=== PATIENT | female | born 1960 | race Caucasian/White ===

== ENCOUNTER 2016-11-07 11:41 | Emergency (ER) | payer OTHER ==
[2016-11-07] MEDS ORDERED: VALIUM 10 MG/2 ML SYRINGE IV ONE (12:33)
--- NOTE | 2016-11-07 12:33 | ERPHSYRPT ---
- History of Present Illness Time Seen by Provider: 11/07/16 12:23 Source: patient, family Exam Limitations: no limitations Patient Subjective Stated Complaint: pt states her hands have been shaking for the past several days. pt also c/o a headache, feeling tired and bruising easily. Triage Nursing Assessment: pt pink, warm, dry. pt ambulated into er without difficultuy. pt able to cntrol movements on own. janusz wnl. Physician History: The patient is a 56-year-old female with family complaining of shaking in both hands that began at midnight or 12 hours ago. She went back to sleep for 3 hours and when she woke up at 3 AM to do a paper route her hands were still shaking. She is able to grasp objects with her hands. She is able to drive a car. Her legs not shake. Her head and neck do not shake. She has no pain. She has not taken any new prescription medications or [id number] medications in the past week. During the interview she is laughing. Her past medical history is significant for arthritis, hypertension, and GERD. Timing/Duration: today, hour(s) (12), constant, sudden Severity: moderate Modifying Factors: Improves With: nothing Associated Symptoms: denies symptoms Allergies/Adverse Reactions: erythromycin base [Erythromycin Base] Allergy (Severe, Verified 11/06/15 09:36) Difficulty Breathing difficulty breathing and chest pain cephalexin monohydrate [From Keflex] Allergy (Mild, Verified 11/07/16 11:58) yeast infection doxycycline Allergy (Mild, Verified 11/07/16 11:58) Nausea and Vomiting bad headache and nausea escitalopram oxalate [From Lexapro] Allergy (Mild, Verified 11/07/16 11:58) Headache Sulfa (Sulfonamide Antibiotics) Allergy (Mild, Verified 11/07/16 11:58) Hives aspirin [From Dominique-Durant] Allergy (Verified 11/07/16 11:58) citric acid [From Dominique-Durant] Allergy (Verified 11/07/16 11:58) prednisone Allergy (Verified 11/07/16 11:58) Headache sodium bicarbonate [From Dominique-Durant] Allergy (Verified 11/07/16 11:58) acetaminophen [From NyQuil] Adverse Reaction (Verified 11/07/16 11:58) dextromethorphan HBr [From NyQuil] Adverse Reaction (Verified 11/07/16 11:58) doxylamine succinate [From NyQuil] Adverse Reaction (Verified 11/06/15 09:36) pseudoephedrine HCl [From NyQuil] Adverse Reaction (Verified 11/06/15 09:36) Home Medications: Losartan Potassium [Cozaar] 50 mg PO DAILY 12/08/14 [History] Pantoprazole Sodium [Protonix] 40 mg PO BID 12/08/14 [History] Nitroglycerin 0.4 mg Tablet [Nitrostat 0.4 MG Tablet] 1 tab SL DAILY PRN 03/07/15 [History] Diclofenac Sodium Gel [Voltaren GEL] 0 gm TOP DAILY 11/07/16 [History] Meloxicam 7.5 mg [Mobic 7.5 MG] 7.5 mg PO DAILY 11/07/16 [History] Hx Tetanus, Diphtheria Vaccination/Date Given: Yes (up to date) Hx Influenza Vaccination/Date Given: No Hx Pneumococcal Vaccination/Date Given: No Immunizations Up to Date: Yes - Review of Systems Constitutional: No Fever, No Chills Eyes: No Symptoms Ears, Nose, & Throat: No Symptoms Respiratory: No Cough, No Dyspnea Cardiac: No Chest Pain, No Edema, No Syncope Abdominal/Gastrointestinal: No Abdominal Pain, No Nausea, No Vomiting, No Diarrhea Genitourinary Symptoms: No Dysuria Musculoskeletal: No Back Pain, No Neck Pain Skin: No Rash Neurological: Tremors (hands) Psychological: No Symptoms Endocrine: No Symptoms Hematologic/Lymphatic: No Symptoms Immunological/Allergic: No Symptoms All Other Systems: Reviewed and Negative - Past Medical History Pertinent Past Medical History: Yes Neurological History: Migraines ENT History: Other Cardiac History: Arrhythmia, Hypertension, Other Respiratory History: No Pertinent History Endocrine Medical History: No Pertinent History Musculoskeletal History: Arthritis, Degenerative Disk Disease, Rheumatoid Arthritis GI Medical History: GERD, Gallbladder Disease History: No Pertinent History Psycho-Social History: No Pertinent History Female Reproductive Disorders: No Pertinent History Other Medical History: 2 Bulging DISKS IN BACKDEGENERATIVE DISK DISEASE - Past Surgical History Past Surgical History: No Neuro Surgical History: No Pertinent History Cardiac: No Pertinent History Respiratory: No Pertinent History Gastrointestinal: Cholecystectomy Genitourinary: No Pertinent History Musculoskeletal: Orthopedic Surgery Female Surgical History: No Pertinent History Other Surgical History: rt foot fx,TONSILLECTOMYRIGHT ANKLE SURGERY - Social History Smoking Status: Never smoker Exposure to second hand smoke: Yes Drug Use: none Patient Lives Alone: No - Female History Hx Now: No - Nursing Vital Signs Nursing Vital Signs: Initial Vital Signs Temperature 97.8 F Temperature Source Oral Pulse Rate 72 Respiratory Rate 16 Blood Pressure [Right Arm] 146/80 Pain Intensity 0 - Physical Exam General Appearance: no apparent distress, alert Eye Exam: PERRL/EOMI, eyes nml inspection Ears, Nose, Throat Exam: normal ENT inspection, TMs normal, pharynx normal, moist mucous membranes Neck Exam: normal inspection, non-tender, supple, full range of motion Respiratory Exam: normal breath sounds, lungs clear, No respiratory distress Cardiovascular Exam: regular rate/rhythm, normal heart sounds, normal peripheral pulses Gastrointestinal/Abdomen Exam: soft, normal bowel sounds, No tenderness, No mass Pelvic Exam: not done Rectal Exam: not done Back Exam: normal inspection, normal range of motion, No CVA tenderness, No vertebral tenderness Extremity Exam: normal inspection, normal range of motion, pelvis stable Neurologic Exam: alert, oriented x 3, cooperative, dismantler II-XII nml as tested, normal mood/affect, sensation nml, other (There is a resting violent shaking of the patient's hands bilaterally. When distracted by doing a physical exam involving one hand, the other hand becomes completely still. For example, when doing the cerebellar tests of finger to nose with the right hand, the right hand which shake but successfully find the nose and finger but the left hand would become completely still. When the test was shifted to the finger-nose for the left hand, the right hand would become completely still. Other distractions would also cause the hands become still. The patient was able to grasp objects without difficulty with her hands. When asked to refrain from shaking, the patient could do so.) Skin Exam: normal color, warm, dry, No rash Lymphatic Exam: No adenopathy SpO2: 98 Oxygen Delivery: Room Air Ordered Tests: Active Orders 24 hr Category Date Time Status IV Insertion STAT Care 11/07/16 12:33 Active BMP Stat Lab 11/07/16 12:50 Completed CBC W DIFF Stat Lab 11/07/16 12:50 Completed UA W/ MICROSCOPIC Stat Lab 11/07/16 12:33 Completed Urine Triage Profile Stat Lab 11/07/16 12:34 Completed Medication Summary Discontinued Medications Generic Name Dose Route Start Last Admin Trade Name Hailey PRN Reason Stop Dose Admin Diazepam 10 mg 11/07/16 12:33 11/07/16 12:42 Valium 10 Mg/2 Ml Syringe IV 11/07/16 12:34 10 mg STAT ONE Administration Diazepam Confirm 11/07/16 12:41 Valium 10 Mg/2 Ml Syringe Administered 11/07/16 12:42 Dose 10 mg .ROUTE .STK-MED ONE Lab/Rad Data: Laboratory Result Diagrams 11/07/16 12:50 11/07/16 12:50 Laboratory Results 11/07/16 11/07/16 11/07/16 Range/Units 12:50 12:50 12:34 WBC 6.4 (4.0-10.5) K/mm3 RBC 4.43 (4.1-5.4) M/mm3 Hgb 12.6 (12.0-16.0) gm/dl Hct 39.6 (35-47) % MCV 89.4 (78-100) fl MCH 28.4 (26-32) pg MCHC 31.8 L (32-36) g/dl RDW 14.9 H (11.5-14.0) % Plt Count 275 (150-450) K/mm3 MPV 11.7 H (6-9.5) fl Gran % 71.2 H (36.0-66.0) % Lymphocytes % 20.5 L (24.0-44.0) % Monocytes % 6.7 (0.0-12.0) % Eosinophils % 1.1 (0.00-5.0) % Basophils % 0.5 (0.0-0.4) % Basophils # 0.03 (0-0.4) Sodium 143 (136-145) mEq/L Potassium 3.8 (3.5-5.1) mEq/L Chloride 106 (98-107) mEq/L Carbon Dioxide 27.9 (21-32) mEq/L Anion Gap 12.5 (5-15) MEQ/L BUN 16 (9-20) mg/dL Creatinine 1.19 (0.55-1.30) mg/dl Estimated GFR 50 ML/MIN Glucose 96 (70-110) MG/DL Calcium 8.9 (8.5-10.1) mg/dL Ur Collection Type Urine Color (YELLOW) Urine Appearance (CLEAR) Urine pH (5-6) Ur Specific [place] (1.005-1.025) Urine Protein (Negative) Urine Glucose (UA) (NEGATIVE) mg/dL Urine Ketones (NEGATIVE) Urine Nitrite (NEGATIVE) Urine Bilirubin (NEGATIVE) Urine Urobilinogen (0-1) mg/dL Urine WBC (Auto) (NEGATIVE) Urine RBC (Auto) (0-5) Matthew/ul Urine Microscopic RBC (0-2) /HPF Urine Microscopic WBC (0-5) /HPF Ur Epithelial Cells (FEW) /HPF Urine Bacteria (NEGATIVE) /HPF Urine Mucus (NEGATIVE) /HPF Urine Opiates Level NEG. (NEGATIVE) Ur Methadone NEG. (NEGATIVE) Urine Barbiturates NEG. (NEGATIVE) Ur Phencyclidine (PCP) NEG. (NEGATIVE) Urine Amphetamine NEG. (NEGATIVE) U Benzodiazepine Level NEG. (NEGATIVE) Urine Cocaine NEG. (NEGATIVE) Urine Marijuana (THC) NEG. (NEGATIVE) Specimen Received 11/07/16 Range/Units 12:33 WBC (4.0-10.5) K/mm3 RBC (4.1-5.4) M/mm3 Hgb (12.0-16.0) gm/dl Hct (35-47) % MCV (78-100) fl MCH (26-32) pg MCHC (32-36) g/dl RDW (11.5-14.0) % Plt Count (150-450) K/mm3 MPV (6-9.5) fl Gran % (36.0-66.0) % Lymphocytes % (24.0-44.0) % Monocytes % (0.0-12.0) % Eosinophils % (0.00-5.0) % Basophils % (0.0-0.4) % Basophils # (0-0.4) Sodium (136-145) mEq/L Potassium (3.5-5.1) mEq/L Chloride (98-107) mEq/L Carbon Dioxide (21-32) mEq/L Anion Gap (5-15) MEQ/L BUN (9-20) mg/dL Creatinine (0.55-1.30) mg/dl Estimated GFR ML/MIN Glucose (70-110) MG/DL Calcium (8.5-10.1) mg/dL Ur Collection Type CLEAN CATCH Urine Color YELLOW (YELLOW) Urine Appearance HAZY (CLEAR) Urine pH 5.5 (5-6) Ur Specific [place] 1.025 (1.005-1.025) Urine Protein 30 (Negative) Urine Glucose (UA) NEGATIVE (NEGATIVE) mg/dL Urine Ketones NEGATIVE (NEGATIVE) Urine Nitrite NEGATIVE (NEGATIVE) Urine Bilirubin NEGATIVE (NEGATIVE) Urine Urobilinogen 0.2 (0-1) mg/dL Urine WBC (Auto) SMALL (NEGATIVE) Urine RBC (Auto) SMALL (0-5) Matthew/ul Urine Microscopic RBC 2-5 (0-2) /HPF Urine Microscopic WBC 5-10 (0-5) /HPF Ur Epithelial Cells MANY (FEW) /HPF Urine Bacteria MANY (NEGATIVE) /HPF Urine Mucus MODERATE (NEGATIVE) /HPF Urine Opiates Level (NEGATIVE) Ur Methadone (NEGATIVE) Urine Barbiturates (NEGATIVE) Ur Phencyclidine (PCP) (NEGATIVE) Urine Amphetamine (NEGATIVE) U Benzodiazepine Level (NEGATIVE) Urine Cocaine (NEGATIVE) Urine Marijuana (THC) (NEGATIVE) Specimen Received 11/07/16 1230 - Progress Progress: improved Counseled pt/family regarding: lab results, diagnosis, need for follow-up - Departure Time of Disposition: 14:16 Departure Disposition: Home Clinical Impression: UTI (urinary tract infection), Intention tremor Condition: Stable Critical Care Time: No Additional Instructions: Follow up on Tuesday. Prescriptions: Nitrofurantoin Macro 100 mg [Macrobid 100MG Capsule] 100 mg PO BID #14 capsule
[2016-11-07 12:40] LABS: COMPLETE URINE MICROSCOPIC? YES; Collection Type CLEAN CATCH; Ph 5.5 (5-6)
[2016-11-07] MEDS ORDERED: VALIUM 10 MG/2 ML SYRINGE ONE (12:41)
[2016-11-07 12:59] LABS: Bacteria MANY /HPF (NEGATIVE); Epithelial Cells MANY /HPF (FEW); Mucus MODERATE /HPF (NEGATIVE)
[2016-11-07 13:05] LABS: BASOPHIL % 0.5 % (0.0-0.4); Eosinophil % 1.1 % (0.00-5.0); Granulocytes % 71.2 % (36.0-66.0); Lymphocytes % 20.5 % (24.0-44.0); Mean Cell Volume 89.4 fl (78-100); Mean Corpuscular Hemoglobin 28.4 pg (26-32); Mean Platelet Volume 11.7 fl (6-9.5); Monocytes % 6.7 % (0.0-12.0); Platelet Count 275 K/mm3 (150-450); Red Blood Count 4.43 M/mm3 (4.1-5.4); Red Cell Distribution Width 14.9 % (11.5-14.0); White Blood Count 6.4 K/mm3 (4.0-10.5)
[2016-11-07 13:24] LABS: ANION GAP 12.5 MEQ/L (5-15); Carbon Dioxide 27.9 mEq/L (21-32); Potassium 3.8 mEq/L (3.5-5.1)
[2016-11-07 14:33] VITALS: BP 137/72; PULSE 78; O2SAT 100
== END 2016-11-07 14:33 | disposition home or self-care (01) ==
LOC: ED 11:41
DX: N39.0 Urinary tract infection, site not specified (principal); G25.2 Other specified forms of tremor; R51 Headache; R53.83 Other fatigue; I10 Essential (primary) hypertension; Z79.899 Other long term (current) drug therapy
CPT/HCPCS: 36000; 36415; 80048; 80307; 81000; 85025; 96374; 99283; 99284; J3360